=== PATIENT | female | born 1965 | race Caucasian/White ===

== ENCOUNTER 2023-10-17 15:58 | Emergency (ER) | payer BC, SELFPAY ==
[2023-10-17] VITALS (9 sets, daily range): BP systolic 146–164; BP diastolic 92–99; PULSE 77–89; RESP 14–25; TEMP 36.4; O2SAT 99–100
--- NOTE | ~2023-10-17 | XR_ITS ---
EXAMINATION: XR chest 2V Exam Date/Time: 10/17/2023 16:15 MANAGER CAR HISTORY: CP LEFT SIDED CHEST PAIN THAT RADIATES TO BACK SINCE Comparison: None. RESULT: Lines, tubes, and devices: None. Lungs and pleura: Mild peripheral mid and lower lung reticular and reticulonodular opacities. Cardiomediastinal silhouette: No cardiomegaly. Mild aortic unfolding. Other: No acute osseous or upper abdominal finding. Mild thoracal lumbar scoliosis. IMPRESSION: Pulmonary opacities may represent mild interstitial edema or mild respiratory vasculitis depending on the appropriate clinical context. Reviewed, dictated and finalized at location K. GER CAR IMPRESSION: Pulmonary opacities may represent mild interstitial edema or mild respiratory v asculitis depending on the appropriate clinical context.
--- NOTE | 2023-10-17 16:00 | ECG_ITS ---
Measurements Intervals [place] Rate: 76 P: 27 MA: 137 QRS: 62 QRSD: 96 T: 56 QT: 382 QTc: 432 Interpretive Statements SINUS RHYTHM ATRIAL PREMATURE COMPLEXES CANNOT RULE OUT SEPTAL INFARCT, AGE INDETERMINATE BASELINE WANDER- II, III, V4-V5 ABNORMAL ECG NO PREVIOUS ECG AVAILABLE FOR COMPARISON Electronically Signed On 10-17-2023 16:18:51 GAUGE CHECKER by Jovon Oconnell D.O.
[2023-10-17 16:17] LABS: Basophils Percent Auto 0.4 % (0.2-1.2); Eosinophils Absolute Auto 0.1 K/mm3 (0-0.3); Eosinophils Percent Auto 1.5 % (0-4.4); Hematocrit 43.9 % (37.0-47.0); Hemoglobin 14.6 g/dL (12.0-15.0); Immature Granulocyte Absolute 0.03 K/mm3 (0.00-0.031); Immature Granulocyte Percent A 0.4 % (0-0.5); Lymphocytes Absolute Auto 2.11 K/mm3 (0.9-3.2); Lymphocytes Percent Auto 30.9 % (18.3-44.2); Mean Corpuscular HGB Conc 33.3 g/dl (32-36); Mean Corpuscular Hemoglobin 29.4 pg (26-34); Mean Corpuscular Volume 88.5 fl (80-100); Mean Platelet Volume 9.2 fl (7.4-10.4); Monocytes Absolute Auto 0.4 K/mm3 (0.1-0.6); Monocytes Percent Auto 5.9 % (2.6-8.5); Neutrophils Absolute Auto 4.2 K/mm3 (1.3-6.7); Neutrophils Percent Auto 60.9 % (45.5-73.1); Platelet Count Result 216 k/mm3 (150-375); Red Blood Count 4.96 M/mm3 (4.2-5.4); Red Cell Distribution Width 12.9 % (11.5-14.5); White Blood Count 6.8 K/mm3 (4.5-10.0)
[2023-10-17 16:29] LABS: Alanine Aminotransferase 36 U/L (6-35); Albumin Level 4.7 g/dL (3.5-5.1); Alkaline Phosphatase 83 U/L (38-126); Anion Gap 8 mmol/L (8-16); Aspartate Amino Transferase 32 U/L (14-36); Bilirubin,Total 0.4 mg/dL (0.2-1.3); Blood Urea Nitrogen 16 mg/dL (7-17); Carbon Dioxide 30 mmol/L (22-30); Chloride 102 mmol/L (98-107); Estimated CRCL calculation 74 ml/min; Estimated Glomerular Filt Rate > 60; Glucose 98 mg/dL (65-110); Lipase 171 U/L (23-300); Potassium 4.3 mmol/L (3.4-5.0); Sodium 140 mmol/L (137-145)
[2023-10-17 16:31] LABS: INR 0.9; Prothrombin Time 12.6 Seconds (11.1-14.7)
[2023-10-17 16:32] LABS: Partial Thromboplastin Time 35.1 SECONDS (22.3-36.8)
[2023-10-17 16:41] LABS: Troponin I < 0.012 ng/mL (0.000-0.034)
--- NOTE | 2023-10-17 18:47 | ED.GENADULT ---
HPI - General Adult General Chief complaint: Chest Pain Stated complaint: chest pain Time Seen by Provider: 10/17/23 18:36 Source: patient Mode of arrival: ambulatory Limitations: no limitations History of Present Illness HPI narrative: This is a 58-year-old female with PMH of HLD who presents to the ED with chief complaint of chest pain x1 week and worse today. Reports a earlier this week it was in the left shoulder area but today was in the midsternal chest. Patient reports that this occurs while lying down. It is not exertional. He also has occasional shortness of breath while lying down but it is not exertional. Does endorse occasional palpitations as well. Denies vomiting, lightheadedness, syncope, cough, leg swelling, history of blood clot, immobilization or hospitalization. Reports she had a Lexiscan and echo a couple of years ago that were both normal. Related Data Home Medications Medication Instructions Recorded Confirmed cyanocobalamin (vitamin B-12) 1,000 mcg PO DAILY 08/12/19 11/18/22 1,000 mcg capsule magnesium 250 mg tablet 250 mg PO BID 08/16/19 11/18/22 Allergies Allergy/AdvReac Type Severity Reaction Status Date / Time No Known Allergies Allergy Verified 05/10/22 14:54 Review of Systems Review of Systems: All systems as dictated in [facility] Past Medical History Medical History (Updated 10/18/23 @ 00:00 by René Kuhn) Abnormal fasting glucose Glucose normal at 95 with hemoglobin A1c 5.5 on 11/22/2022. Acute pain of left foot Breast cancer screening by mammogram Mammogram Was negative on 01/28/22. normal mammogram 03/04/2023. Chronic anxiety Colon cancer screening Hypercalcemia Calcium slightly elevated at 10.4 on 11/22/2022. Repeat calcium normal at 9.9 with PTH normal at 29 on 11/29/2022. Screening for endocrine disorder Family History Family History Grandparent Diabetes mellitus Acute myocardial infarction Family history of Alzheimer's disease, Onset Age: 76 Sibling Family history of suicide, Onset Age: 52 Mother Acute myocardial infarction, Onset Age: 58 Father Family history of Parkinson's disease, Onset Age: 75 Social History Social History (Updated 11/18/22 @ 14:38 by Kalyn Valdez MA) Smoking status: Never smoker Alcohol intake: current Substance use: never Substance use type: does not use Lack of Transportation: No Lack of Food: Never True Current Housing: I Have Housing Concerned About Future Housing: No Difficulty Paying Gas/Electric Bills: No Difficulty Paying for Meds: No Currently Unemployed: No Education: Trade/Vocational Certificate Difficulty w/ Childcare or Family Care: No Exam Narrative: GENERAL: Well-appearing, well-nourished, and in no acute distress. HEAD: Normocephalic, atraumatic. EYES: PERRLA and EOMI. ENT: Nares clear, no rhinorrhea or epistaxis. Mucous membranes moist. Oropharynx without tonsillar hypertrophy exudate or other lesions. NECK: Supple. No adenopathy or masses. CHEST: No respiratory distress. Clear to auscultation. No wheezes rales or rhonchi HEART: Regular rate and rhythm. No murmur heard. Normal peripheral pulses. ABDOMEN: Soft, nontender, nondistended, normal active bowel sounds. MSK: Normal range of motion. No edema. SKIN: Warm, dry, no rash. NEURO: Alert and oriented x3. No focal deficits. PSYCH: Normal mood and affect. Course Vital Signs Vital signs: Vital Signs Temperature 97.5 F L 10/17/23 16:01 Pulse Rate 89 10/17/23 16:01 Respiratory Rate 19 10/17/23 16:01 Blood Pressure 164/93 H 10/17/23 16:01 Pulse Oximetry 100 10/17/23 16:01 Oxygen Delivery Room Air 10/17/23 16:01 Temperature 97.5 F L 10/17/23 16:01 Pulse Rate 88 10/17/23 19:50 Respiratory Rate 14 10/17/23 19:50 Blood Pressure 152/99 H 10/17/23 19:50 Pulse Oximet
[2023-10-17 19:15] LABS: D Dimer 0.31 ug/mL (<0.48)
[2023-10-17 19:44] LABS: Troponin I < 0.012 ng/mL (0.000-0.034)
== END 2023-10-17 19:54 | disposition home or self-care (01) ==
PROVIDERS: Emergency Medicine; Emergency Provider Physician Assistant; PCP Family Medicine
DX: R07.89 Other chest pain (principal); E78.5 Hyperlipidemia, unspecified; F41.9 Anxiety disorder, unspecified; I49.1 Atrial premature depolarization; R94.31 Abnormal electrocardiogram [ECG] [EKG]
CPT/HCPCS: 36415; 71046; 80053; 83690; 84484; 85025; 85380; 85610; 85730; 93005; 99284

== ENCOUNTER 2023-12-07 10:11 | Emergency (ER) | payer BC, SELFPAY ==
[2023-12-07] VITALS (8 sets, daily range): BP systolic 152–163; BP diastolic 75–112; PULSE 75–86; RESP 17–20; TEMP 36.1–36.6; O2SAT 98–100
--- NOTE | ~2023-12-07 | US_ITS ---
CORRECTED REPORT corrected examination description [facility] 12/09/23 This report was recreated on 12/09/23. Original report was RUBBER MOLDER EXAMINATION: US transvaginal DATE: 12/07/2023 15:34 INDICATION: possible torsion on the right TECHNIQUE: Multiple transabdominal and endovaginal sonographic images of the pelvis were obtained. COMPARISON: None. FINDINGS: Uterus: Status post hysterectomy. Right Ovary: 4.6 x 2.9 x 4.5 cm. Vascular flow is present. 3.1 cm and 2.5 cm mostly anechoic ovarian lesions with suggestion of internal debris/nonvascular nodularity. Multiple additional hypoechoic ovarian lesions ranging in size between 11 and 14 mm, some of which contain internal echogenicity and the suggestion of nonvascular nodularity. Distorted ovarian anatomy with echogenic foci suggestive of calcifications. Left Ovary: Not visualized. There is trace left adnexal fluid. IMPRESSION: Status post hysterectomy. Left ovary not visualized. Trace left adnexal fluid. No sonographic evidence of ovarian torsion. Multiple right ovarian unilocular lesions ranging in size between 1.1 cm and 3.1 cm, several of which demonstrate internal, nonvascular nodularity, ORADS US Category 3. Recommend pelvic MRI and gynecology/gynecology-oncology consultation. Reviewed, dictated and finalized at location K. RUBBER MOLDER MTDD IMPRESSION: Status post hysterectomy. Left ovary not visualized. Trace left adnexal fluid. No sonographic evidence of ovarian torsion. Multiple right ovarian unilocular lesions ranging in size between 1.1 cm and 3. 1 cm, several of which demonstrate internal, nonvascular nodularity, ORADS US C ategory 3. Recommend pelvic MRI and gynecology/gynecology-oncology consultation .
--- NOTE | ~2023-12-07 | CT_ITS ---
EXAMINATION: CT abdomen pelvis w con DATE: 12/07/2023 11:28 INDICATION: Right lower quadrant abdominal pain. TECHNIQUE: Computed tomography (CT) of the abdomen and pelvis was performed with 100 mL Omnipaque 350 intravenous contrast. Automated exposure control and iterative reconstruction technique were employe d. The dose-length product was 1011.45 mGy-cm. COMPARISON: None. FINDINGS: The visualized portions of the lung bases demonstrate mild atelectasis. No pleural effusion . The heart size is normal. No pericardial effusion. The liver and spleen are normal. There are galls tones in the gallbladder, which is normal in size. The pancreas, adrenal glands, and kidneys are norm al. There are no dilated loops of bowel. The appendix is normal. There are no pathologically enlarged lymph nodes. There is no free intraperitoneal fluid. There is a multiloculated cystic mass in the ri ght ovary measuring up to 4.7 cm. There is severe lumbar spondylosis and mild thoracic spondylosis. IMPRESSION: 1. Cystic mass in the right ovary, which may be benign or less likely malignant. Torsion is not exclu ded.. Pelvis ultrasound is recommended. Reviewed, dictated and finalized at location A. DENTIAL HOUSEKEEPER IMPRESSION: 1. Cystic mass in the right ovary, which may be benign or less likely malignant . Torsion is not excluded.. Pelvis ultrasound is recommended.
--- NOTE | 2023-12-07 10:22 | ED.ABDPAIN ---
HPI - Abdominal Pain General Chief Complaint: Abdominal Pain Stated Complaint: LOWER ABD PAIN X2D Time Seen by Provider: 12/07/23 10:13 History of Present Illness HPI narrative: Patient is a 58-year-old female who presents ER with right-sided abdominal pain. Worsening over last 2 days. Located in the right lower quadrant. Somewhat moves towards her back. No urinary frequency urgency or dysuria. Pain is worse with physical movements. No constipation or diarrhea. Has not found any alleviating factors. Related Data Home Medications Medication Instructions Recorded Confirmed cyanocobalamin (vitamin B-12) 1,000 mcg PO DAILY 08/12/19 12/07/23 1,000 mcg capsule magnesium 250 mg tablet 250 mg PO BID 08/16/19 12/07/23 Allergies Allergy/AdvReac Type Severity Reaction Status Date / Time No Known Allergies Allergy Verified 05/10/22 14:54 Review of Systems Review of Systems: All systems reviewed & are unremarkable except as noted in HPI and below Constitutional: Constitutional: Reports no additional constitutional complaints ENT: Reports system reviewed and no additional complaints, except as documented Cardiovascular: Cardiovascular: Reports no additional cardiovascular complaints Gastrointestinal: Gastrointestinal: Reports abdominal pain, Denies diarrhea, Denies nausea and Denies vomiting Genitourinary: Genitourinary: Reports no additional female genitourinary complaints [facility] Past Medical History Medical History (Updated 12/07/23 @ 16:33 by Alcides Lopez MD) Abnormal fasting glucose Glucose normal at 95 with hemoglobin A1c 5.5 on 11/22/2022. Acute non-recurrent maxillary sinusitis Acute pain of left foot Breast cancer screening by mammogram Mammogram Was negative on 01/28/22. normal mammogram 03/04/2023. Chronic anxiety Colon cancer screening Hypercalcemia Calcium slightly elevated at 10.4 on 11/22/2022. Repeat calcium normal at 9.9 with PTH normal at 29 on 11/29/2022. Screening for endocrine disorder Surgical History Surgical History (Updated 12/07/23 @ 16:32 by Alcides Lopez MD) History of partial hysterectomy Family History Family History Grandparent Diabetes mellitus Acute myocardial infarction Family history of Alzheimer's disease, Onset Age: 76 Sibling Family history of suicide, Onset Age: 52 Mother Acute myocardial infarction, Onset Age: 58 Father Family history of Parkinson's disease, Onset Age: 75 Social History Social History (Updated 11/18/22 @ 14:38 by Kalyn Valdez MA) Smoking status: Never smoker Alcohol intake: current Substance use: never Substance use type: does not use Lack of Transportation: No Lack of Food: Never True Current Housing: I Have Housing Concerned About Future Housing: No Difficulty Paying Gas/Electric Bills: No Difficulty Paying for Meds: No Currently Unemployed: No Education: Trade/Vocational Certificate Difficulty w/ Childcare or Family Care: No Exam Narrative: GENERAL: Uncomfortable-appearing, well-nourished, and in no acute distress. HEAD: Normocephalic, atraumatic. EYES: PERRL and EOMI. ENT: Mucous membranes moist. CHEST: Clear to auscultation. No respiratory distress. HEART: Regular rate and rhythm. Normal peripheral pulses. ABDOMEN: Soft, mild tenderness to RLQ w/o guarding, nondistended, normal active bowel sounds. EXTREMITIES: Normal range of motion. No edema. SKIN: Warm, dry, no rash. NEURO: Alert and oriented x3. PSYCH: Normal mood and affect. Course Course Emergency Course: Patient informed of results. It took a prolonged time to get ultrasound down here to see the patient. Suspect ruptured ovarian cyst. Recommend follow-up with Gynecology and patient will require the name of a local physician. Vital Signs Vital signs: Vital Signs Temperature 97 F L 12/07/23 10:15
[2023-12-07] MEDS: ONDANSETRON INJ 4 MG/2 ML VIAL IV PUSH (10:29)
[2023-12-07] MEDS: MORPHINE SULFATE (*CRX) 4 MG/ML INJ IV PUSH (10:30)
[2023-12-07] MEDS: SODIUM CHLORIDE 0.9% IV 1,000 ML 999 ML IV CONT (10:30)
[2023-12-07 10:32] LABS: Basophils Percent Auto 0.3 % (0.2-1.2); Eosinophils Absolute Auto 0.1 K/mm3 (0-0.3); Eosinophils Percent Auto 1.8 % (0-4.4); Hematocrit 45.8 % (37.0-47.0); Hemoglobin 15.3 g/dL (12.0-15.0); Immature Granulocyte Absolute 0.04 K/mm3 (0.00-0.031); Immature Granulocyte Percent A 0.6 % (0-0.5); Lymphocytes Absolute Auto 2.27 K/mm3 (0.9-3.2); Lymphocytes Percent Auto 34.6 % (18.3-44.2); Mean Corpuscular HGB Conc 33.4 g/dl (32-36); Mean Corpuscular Hemoglobin 29.5 pg (26-34); Mean Corpuscular Volume 88.2 fl (80-100); Mean Platelet Volume 9.3 fl (7.4-10.4); Monocytes Absolute Auto 0.4 K/mm3 (0.1-0.6); Monocytes Percent Auto 5.6 % (2.6-8.5); Neutrophils Absolute Auto 3.7 K/mm3 (1.3-6.7); Neutrophils Percent Auto 57.1 % (45.5-73.1); Platelet Count Result 213 k/mm3 (150-375); Red Blood Count 5.19 M/mm3 (4.2-5.4); Red Cell Distribution Width 13.6 % (11.5-14.5); White Blood Count 6.6 K/mm3 (4.5-10.0)
[2023-12-07 10:46] LABS: Add Urine Microscopic? YES; Appearance Urine Clear (Clear); Bacteria Urine None Seen /hpf; Bilirubin Urine Negative (Negative); Blood Urine Negative (Negative); Color Urine Dark Yellow (Yellow); Glucose Urine UA Negative (Negative); Ketones Urine Negative (Negative); Leukocyte Esterase Ur Trace LEU/UL (Negative); Need Manual Microscopic Reviewed; Nitrate Urine Positive (Negative); Non Pathogenic Casts 0-2; Protein Urine 2+ mg/dL (Negative); RBC Urine 0-2 /hpf (0-2); Specific Grav Ur 1.011 (1.001-1.035); Squamous Epithelial Cell Urine None seen /hpf (Few); WBC Urine 0-5 /hpf
[2023-12-07 11:01] LABS: Alanine Aminotransferase 38 U/L (6-35); Albumin Level 4.3 g/dL (3.5-5.1); Alkaline Phosphatase 80 U/L (38-126); Anion Gap 6 mmol/L (8-16); Aspartate Amino Transferase 34 U/L (14-36); Bilirubin,Total 0.6 mg/dL (0.2-1.3); Blood Urea Nitrogen 12 mg/dL (7-17); Calcium 9.5 mg/dL (8.4-10.2); Carbon Dioxide 26 mmol/L (22-30); Chloride 105 mmol/L (98-107); Estimated Glomerular Filt Rate > 60; Glucose 110 mg/dL (65-110); Lipase 74 U/L (23-300); Potassium 4.3 mmol/L (3.4-5.0); Sodium 137 mmol/L (137-145)
[2023-12-07] MEDS: MORPHINE SULFATE (*CRX) 2 MG/ML INJ IV PUSH (12:03)
== END 2023-12-07 16:44 | disposition home or self-care (01) ==
PROVIDERS: Emergency Provider Emergency Medicine; PCP Family Medicine
DX: N83.201 Unspecified ovarian cyst, right side (principal); Z90.711 Acquired absence of uterus with remaining cervical stump
CPT/HCPCS: 36415; 74177; 76830; 76856; 80053; 81001; 83690; 85025; 96361; 96374; 96375; 96376; 99284; J2270; J2405; J7030; Q9967

== ENCOUNTER 2023-12-22 14:24 | Outpatient (CLI) | payer BC, SELFPAY ==
--- NOTE | ~2023-12-22 | MR_ITS ---
EXAMINATION: MR pelvis wo/w con DATE: 12/22/2023 15:47 INDICATION: Cystic right ovarian mass TECHNIQUE: Magnetic resonance imaging (MRI) of the pelvis was performed without and with 18 mL Multih ance intravenous contrast. Full-field sequences of the pelvis included axial and coronal T2-weighted SS FSE, coronal 2D FIESTA, axial T1-weighted FSPGR, axial dual-echo T1-weighted FSPGR and axial T1 we ighted LAVA. Small field of view sequences included axial, sagittal and coronal T2-weighted FSE cent ered on the uterus and adnexa. Postcontrast sequences included a time course axial T1-weighted LAVA with full-field of view of the pelvis. COMPARISON: CT and ultrasound dated 12/07/2023 FINDINGS: Bladder is normal. The uterus and left ovary are not identified and have likely been surgically resec luis. Again seen is a multiloculated cystic right ovarian mass together measuring 6.8 x 4.2 x 3.5 cm w ith multiple thin smooth internal septations and without a solid enhancing soft tissue component. A f ew of the cystic components including the largest which measures 3.2 cm in diameter demonstrates slig htly lower T2 hyperintensity and subtle increased T1 signal consistent with internal proteinaceous/he morrhagic fluid. Visualized portion of the bowels are unremarkable. No free fluid in the pelvis. No p athologically enlarged pelvic or inguinal lymphadenopathy. Severe lumbar spondylosis. IMPRESSION: 1. 6.8 x 4.2 x 3.5 cm complex cystic right adnexal mass with multiple thin smooth internal septations which is suspicious for ovarian neoplasm more likely benign ovarian cystadenoma with no solid enhanc ing components to elevate suspicion for cystadenocarcinoma. Differential would include multiple close ly opposed independent ovarian cysts. Recommend gynecologic consultation. Reviewed, dictated and finalized at location A. IMPRESSION: 1. 6.8 x 4.2 x 3.5 cm complex cystic right adnexal mass with multiple thin smoo th internal septations which is suspicious for ovarian neoplasm more likely nadiya ign ovarian cystadenoma with no solid enhancing components to elevate suspicion for cystadenocarcinoma. Differential would include multiple closely opposed in dependent ovarian cysts. Recommend gynecologic consultation.
== END 2023-12-22 14:25 | disposition home or self-care (01) ==
LOC: ANHIMG 14:28
PROVIDERS: PCP Family Medicine; Visit Provider Family Medicine
DX: N83.201 Unspecified ovarian cyst, right side (principal)
CPT/HCPCS: 72197; A9577

== ENCOUNTER 2024-01-19 01:56 | Day surgery (SDC) | payer BC, SELFPAY ==
[2024-01-08 09:49] VITALS: BMI 28.8
--- NOTE | 2024-01-08 10:00 | PC.NURSE ---
Report to the Outpatient Waiting Room, entrance under the green pavilion located off [facility], at time 10:00am on date 01/19/24. Planned Procedure Time: 12:00pm. Time changes happen often and if your time is changed the preop area will call you the afternoon before. - You and your visitor will be asked to self-screen and do not enter if you have any COVID symptoms. - A mask is optional within the hospital at this time. Patients may have clear liquids (water, carbonated beverages, clear teas, apple juice) until 3 hours prior to surgery (09:00am) with a maximum of 20 ounces. - No food from midnight until time of surgery Take the following medications with a SIP of water the morning of surgery: xanax as needed DO NOT STOP ANY OF YOUR OTHER PRESCRIPTION MEDICATIONS PRIOR TO SURGERY ?EXCEPT THE FOLLOWING Medications to discontinue per physician vitamins and supplements Date to take last dose 01-15-24 Please no make-up, nail bhutanese, hairspray, perfume, deodorant, or body powder the day of surgery. No jewelry (including any body piercings) or valuables the day of surgery, leave them at home. Please take a shower or bath the night before, or the morning of, surgery with an antibacterial soap. Wear comfortable, loose fitting clothing. - Jewelry must be removed prior to entering the operating room. Rings and piercings that are not removed may be cut off. - The hospital will not accept responsibility for valuables. - Please leave all valuables, including medications, at home the day of surgery. If you are going home after surgery, a licensed catering truck driver must drive you home. - NO public transportation without another adult if you receive anesthesia. - We recommend that an adult stay with you for 24 hours following discharge. - We also recommend that you do not drive, make important decision, drink alcoholic beverages, or take any drugs that were not prescribed by your health care provider for at least 24 hours after your discharge time. Follow any additional instructions given to you from your surgeon. If you or anyone in your household have experienced Covid symptoms in the past week, please notify your surgeon or the nurse liaison at the phone number below for possible testing. Telephone instructions given to PATIENT and asked if any additional questions and then verbalized understanding. Patient advised to call surgeon office or pre surgery nurse liaison [phone] if any additional questions.
[2024-01-19] VITALS (9 sets, daily range): BP systolic 130–149; BP diastolic 80–94; PULSE 60–92; RESP 12–20; TEMP 36.4–36.6; O2SAT 100; BMI 30.4
--- NOTE | 2024-01-19 07:16 | WPDHPUPDATE1 ---
History and Physical Update Update Date/Time: 01/19/24 07:16 History and Physical has been reviewed, including an updated exam of the patient. There are NO changes in the patient's condition. Tumor markers are all negative. Risks, benefits, and alternatives have been discussed and questions answered. Patient agrees to proceed with robotic assisted right oophorectomy, pelvic washings, possible salpingectomy if tubes still present..
[2024-01-19] MEDS: KETOROLAC 15 MG/ML VIAL (*BKC) IV PUSH (10:42)
[2024-01-19] MEDS: ACETAMINOPHEN 500 MG TABLET 1000 MG PO (10:42)
--- NOTE | 2024-01-19 11:26 | WPDANESEPPF ---
Anes - Initial Pre Proc Eval Procedure: Operation Date: 01/19/24 12:00 Proposed Procedures p Robotic Assisted Laparoscopic Right Salpingo-oophorectomy - Keila Carias MD Date/Time: 01/19/24 11:26 Surgeon: Keila Carias MD Pre Op Diagnosis: Rt Ovarian Cyst Patient Data Age: 58 Gender: F Height: 1.78 m Weight: 96.3 kg Last Vital Signs Temp 36.4 C 01/19/24 10:52 Pulse 83 01/19/24 10:52 Resp 14 01/19/24 10:52 BP 137/92 H 01/19/24 10:52 Pulse Ox 100 01/19/24 10:52 O2 Del Method Room Air 01/19/24 10:52 Allergies Allergy/AdvReac Type Severity Reaction Status Date / Time No Known Allergies Allergy Verified 01/08/24 09:51 Home Medications Medication Instructions Recorded Confirmed Type cyanocobalamin (vitamin B-12) 1,000 mcg PO DAILY 08/12/19 01/08/24 History 1,000 mcg capsule meloxicam 15 mg tablet 15 mg PO DAILY PRN pain #30 tabs 11/18/23 01/08/24 Rx polyethylene glycol 3350 17 17 g PO DAILY 12/09/23 01/08/24 History gram/dose oral powder (Miralax) zolpidem 10 mg tablet 10 mg PO . q.h.s. PRN insomnia #30 12/09/23 01/08/24 Rx tabs alprazolam 0.25 mg tablet (Xanax) 0.25 mg PO TID PRN anxiety #270 12/17/23 01/08/24 Rx tabs Adult One Daily Multivitamin 1 tab-cap PO DAILY 01/08/24 01/08/24 History Patient hx anesthesia problems: none Family hx anesthesia problems: other (father slow to awaken) Results Review: All pre-operative results and documents have been reviewed as part of the pre-operative evaluation. [facility] Past Medical History Medical History Abnormal fasting glucose Glucose normal at 95 with hemoglobin A1c 5.5 on 11/22/2022. Glucose normal at 91 with hemoglobin A1c 5.5 on 12/10/2023. Acute non-recurrent maxillary sinusitis Acute pain of left foot BMI 30.0-30.9,adult Breast cancer screening by mammogram Mammogram Was negative on 01/28/22. normal mammogram 03/04/2023. Chronic anxiety Chronic constipation Colon cancer screening COVID-19 (~11/13/23) Hypercalcemia Calcium slightly elevated at 10.4 on 11/22/2022. Repeat calcium normal at 9.9 with PTH normal at 29 on 11/29/2022. Itchy skin Obesity (BMI 30.0-34.9) Ovarian cystic mass (12/07/23) right ovarian cystic mass 12/07/2023. CA 125 normal at 18.2 on 12/10/2023. MRI of the pelvis on 12/22/2023 reveals complex cystic mass right ovarian area with suspicion for malignancy but more likely a benign cystadenoma. Screening for endocrine disorder Surgical History Surgical History History of partial hysterectomy Hx of abdominoplasty liposuction Family History Family History Grandparent Diabetes mellitus Acute myocardial infarction Family history of Alzheimer's disease, Onset Age: 76 Sibling Family history of suicide, Onset Age: 52 Mother Acute myocardial infarction, Onset Age: 58 Father Family history of Parkinson's disease, Onset Age: 75 Social History Social History Smoking status: Never smoker Second hand tobacco smoke exposure: Yes ( used to smoke) Alcohol intake: current Drinks per week: 6 Substance use: never Substance use type: does not use Do You Feel Safe in your Home?: Yes Lack of Transportation: No Lack of Food: Never True Current Housing: I Have Housing Concerned About Future Housing: No Difficulty Paying Gas/Electric Bills: No Difficulty Paying for Meds: No Currently Unemployed: No Education: Trade/Vocational Certificate Difficulty w/ Childcare or Family Care: No Living arrangements: with family Occupation/Education: occupation Gender identity (if verbalized by the patient): Female Sexual Orientation (if Verbalized by the Patient): Straight or Heterosex
[2024-01-19] MEDS: LACTATED RINGERS 1,000 ML 30 ML IV CONT ×2 (11:34→12:51)
[2024-01-19] MEDS: LIDO 1%/EPINEPHRINE 1:100,000 20 ML VIAL 30 ML INFILTRATE (12:26)
--- NOTE | 2024-01-19 12:47 | P.OP_ITS ---
Procedure Note - Detailed Date of Procedure 01/19/24 Pre-op Diagnosis Rt Ovarian Cyst Post-op Diagnosis Same Procedure Performed Laparoscopic right oophorectomy, pelvic washings Surgeon Keila Carias MD Cable Tower Operator Braden Anesthesia General and Local (10cc of 1% lido w/ epi) Findings H/o hysterectomy with bilateral salpingectomy and left oophorectomy. Pelvic washing collected. Her right ovary was found to be partially torsed; multi- loculated/cystic. Ovary placed in bag and ruptured on removal (no fluid went intra-abdominally); dark brown fluid noted. Good hemostasis. No adhesions or other abnormal findings noted. Description of Procedure Tova was taken to the operating room where she was placed under general endotracheal anesthesia without complications. She was then prepped and draped in the usual sterile fashion in the dorsal lithotomy position with her legs in low Celso stirrups and her arms tucked at her side with a strap over her chest. A time-out was performed and no preoperative antibiotics were indicated. A Reed catheter was placed and a sponge on a stick was placed in the vagina. A 5 mm trocar was placed under direct visualization in [facility] without complications. Once intra-abdominal placement was confirmed the abdomen was insufflated with carbon dioxide gas. She was then placed in Trendelenburg and the above findings were noted. I decided to proceed with laparoscopic surgery (rather than docking the robot) as there was no scar tissue and the IP was easily accessible using the LigaSure device. Two additional ports were placed in the left and right lower quadrants under direct visualization without complications. The pelvis and ovary were irrigated and at least 30cc of the fluid was collected for cytology. The right ureter was noted transperitoneally and well out of the surgical field. The partially torsed IP ligament was serially clamped and coagulated using the LigaSure device. The IP ligament was then cross clamped with the LigaSure device and transected. Good hemostasis was noted. The ovary containing the multiple cysts was then placed within a bag. The bag was then brought to the incision and the trocar removed. The skin and fascial incision were slightly enlarged. The cyst was grasped using Ovidio clamps and ruptured with a significant amount of brown fluid noted onto the surgical field (not into her abdomen). The cyst and bag were then able to be removed from the abdomen. The Danny Cortez device was then used and the fascial incision was reapproximated using 0-Vicryl and the pneumo then returned ensuring good closure of the fascia. All instruments were removed from the abdomen. The insufflation was released and the trocars were removed. The 3 laparoscopic incision sites were reapproximated using 4-0 Monocryl and covered with Dermabond. The incisions were then infiltrated using 1% Lidocaine. The Reed was removed. Sponge, lap, instrument, and needle counts were correct at the end of the procedure. Patient was awoken from general anesthesia and taken to recovery with plans of same-day discharge home. Estimated Blood Loss 10 IV Fluids 1,000 Urine Output 30 Pathology Yes (Right ovary containing cysts) Complications No immediate complications Condition Stable Disposition Same day [facility] Billing Surgery - Charge Forward: Surgery Billing
== END 2024-01-19 14:26 | disposition home or self-care (01) ==
PROVIDERS: PCP Family Medicine; Visit Provider Obstetrics & Gynecology
PROC: 8E0W4CZ Robotic Assisted Procedure of Trunk Region, Percutaneous Endoscopic Approach (ICD-10-PCS; CPT 49320; principal; 2024-01-19 12:00)
DX: D27.0 Benign neoplasm of right ovary (principal); F41.9 Anxiety disorder, unspecified; K59.09 Other constipation; E83.52 Hypercalcemia; Z98.890 Other specified postprocedural states; Z82.49 Family history of ischemic heart disease and other diseases of the circulatory system
CPT/HCPCS: 58661; 36415; 86850; 86900; 86901; 88108; 88305; A9270; J1100; J1170; J1885; J2250; J2405; J2704; J3010; J7030; J7120

== ENCOUNTER 2024-06-10 15:59 | Outpatient (CLI) | payer BC, SELFPAY ==
--- NOTE | ~2024-06-10 | MM_ITS ---
EXAMINATION: MM screening shila BI w leatha HISTORY: Screening mammogram TECHNIQUE: Craniocaudal and mediolateral oblique 3-D tomosynthesis images were obtained and synthetic 2-D images were generated. CAD analysis was submitted and interpreted. COMPARISON: No prior mammogram is available for comparison at this institution. BREAST PARENCHYMAL COMPOSITION:Dense: The breasts are heterogeneously dense, which may obscure small masses. FINDINGS: No suspicious mass, calcification, or architectural distortion are identified in either rubio ast to suggest malignancy. There has been no suspicious interval change. IMPRESSION: No mammographic evidence of malignancy. Recommend routine screening mammography in one year. BI-RADS Category 1: Negative Reviewed, dictated and finalized at location .
== END 2024-06-10 16:00 | disposition home or self-care (01) ==
LOC: ANHIMG 16:01
PROVIDERS: PCP Family Medicine; Visit Provider Family Medicine
DX: Z12.31 Encounter for screening mammogram for malignant neoplasm of breast (principal)
CPT/HCPCS: 77063; 77067